=== PATIENT | male | born 1950 | race Caucasian/White ===

== ENCOUNTER 2018-07-10 15:33 | Observation (INO) | payer MEDICARE, BC ==
[2018-07-10 16:01] LABS: CHLORIDE,CL 106 mEq/L (98-106); SODIUM,NA 139 mEq/L (136-145)
[2018-07-10] MEDS ORDERED: Sodium Chloride 0.9% 10 ML Syringe FLUSH PRN (17:12)
[2018-07-10] MEDS ORDERED: Enoxaparin 40 MG/0.4 ML Syringe SUBCUT SCH (17:15)
[2018-07-11 07:43] VITALS: BP 173/94
--- NOTE | 2018-07-11 20:19 | PCM.DCSUM1 ---
Discharge Summary - Hospital Course Free Text/Narrative:: Patient presented to clinic after an episode of altered mental status. Had been working out in the shop with his brother, driving a bobcat. Brother reports he was confused, not acting normally. He was driving "like he didn't know what he was doing". Episode started at around 0930, lasted about 20 minutes but did not present until afternoon to clinic. He was back to his baseline at that time, only reported a dull headache. Had not experienced anything like this in the past. Denied chest pain, shortness of breath. Had eaten 3 donuts for breakfast. Labs in clinic within normal limits. CT scan of the head without acute changes. Admitted for neurological monitoring and telemetry. Diagnosis: Stroke: No Modified Markell Scale: No Symptoms at All Modified Sandoval Scale Score: 0 - Discharge Data Discharge Date: 07/11/18 Discharge Disposition: Home, Self-Care 01 Condition: Good - Patient Summary/Data Complications: none Hospital Course: Patient presented with concerns of TIA. Had been out in his shop and not acting or talking appropriately. Has no recollection of the events of this. Once presented to the clinic had returned back to his baseline and was feeling good with the exception of a mild headache. Labs in clinic were normal. Labs normal this am as well. Lipid profile shows total cholesterol of 185, LDL 123. CT scan of head was negative. Had echocardiogram and carotid ultrasound done today, awaiting results. Blood pressure has been ranging in the 150s/90s. Was on Lisinopril/HCT up until 1 1/2 years ago. states stopped on his own due to feeling lightheaded. Does randomly check his blood pressure and had not been concerned. No cardiac changes. Denies any symptoms today. Ambulating about without concern. No lightheadedness, chest pain or shortness of breath. Denies any weakness, numbness, tingling. No visual changes. Headache improved today. - Patient Instructions Diet: Usual Diet as Tolerated Activity: As Tolerated - Discharge Plan *PRESCRIPTION DRUG MONITORING PROGRAM REVIEWED*: No *COPY OF PRESCRIPTION DRUG MONITORING REPORT IN PATIENT EVIE: No Prescriptions/Med Rec: Clopidogrel Bisulfate [Plavix] 75 mg PO DAILY #30 tablet Lisinopril 10 mg PO DAILY #30 tablet Home Medications: Home Meds Aspirin [Halfprin] 81 mg PO DAILY 06/25/15 [History] Dextran 70/Hypromellose [Artificial Tears] 1 drop EYEBOTH DAILY 06/25/15 [ History] Ibuprofen 200 mg PO DAILY PRN 06/25/15 [History] Cyanocobalamin (Vitamin B-12) [Vitamin B-12] 250 mcg PO DAILY 07/10/18 [History] Turmeric Root Extract [Turmeric Curcumin] 500 mg PO DAILY 07/10/18 [History] Clopidogrel Bisulfate [Plavix] 75 mg PO DAILY #30 tablet 07/11/18 [Rx] Lisinopril 10 mg PO DAILY #30 tablet 07/11/18 [Rx] Referrals: Bridger Durham MD [ED Physician] - (Follow up with Dr. Durham in one week) - Discharge Summary/Plan Comment DC Time >30 min.: No Discharge Summary/Plan Comment: Discharge home Start Plavix Lisinopril 10 mg daily Follow up with Dr. Durham next week to discuss echo and carotid US results. - General Info Date of Service: 07/11/18 Admission Dx/Problem (Free Text: TIA Functional Status: Reports: Pain Controlled, Tolerating Diet, Ambulating - Review of Systems General: Denies: Fever, Weakness, Fatigue HEENT: Reports: No Symptoms Pulmonary: Denies: Shortness of Breath, Cough Cardiovascular: Denies: Chest Pain, Edema, Lightheadedness Gastrointestinal: Denies: Abdominal Pain, Nausea, Vomiting Genitourinary: Reports: No Symptoms Musculoskeletal: Reports: No Symptoms Skin: Reports: No Symptoms Neurological: Reports: No Symptoms - Patient Data Vitals - Most Recent: Last Vital Signs Temp 96.6 F 07/11/18 07:42 Pulse 72 07/11/18 04:00 Resp 18 07/11/18 07:42 BP 173/94 H 07/11/18 07:42 Pulse Ox 100 07/11/18 07:42 Weight - Most Recent: 189 lb 14.4 oz Lab Results - Last 24 hrs: Laboratory Results - last 24 hr 07/11/18 Range/Units 07:07 Triglycerides 100 (30-150) mg/dL Cholesterol 185 (0-199) mg/dL LDL Cholesterol, Calc 123 H (0-99) mg/dL HDL Cholesterol 42 L (60-90) mg/dL Med Orders - Current: Current Medications Discontinued Medications Enoxaparin Sodium (Lovenox) 40 mg SUBCUT Q24H PREET Last Admin: 07/10/18 17:37 Dose: Not Given Sodium Chloride (Saline Flush) 10 ml FLUSH ASDIRECTED PRN PRN Reason: Keep Vein Open - Exam General: Reports: Alert, Oriented HEENT: Reports: Mucous Membr. Moist/[place] Neck: Reports: Supple Lungs: Reports: Clear to Auscultation, Normal Respiratory Effort Cardiovascular: Reports: Regular Rate, Regular Rhythm GI/Abdominal Exam: Normal Bowel Sounds, Soft, Non-Tender Extremities: Normal Inspection, No Pedal Edema Skin: Reports: Warm, Dry Neurological: Reports: No New Focal Deficit
== END 2018-07-11 13:10 | disposition home or self-care (01) ==
LOC: CC.CT 15:33 → CC.MS 16:23
PROVIDERS: ADMIT Nurse Practitioner Family; ATTEND Family Medicine
DX: G45.9 Transient cerebral ischemic attack, unspecified (principal); I10 Essential (primary) hypertension; Z79.82 Long term (current) use of aspirin
CPT/HCPCS: 36415; 70450; 80053; 80061; 81001; 82728; 83540; 83550; 85025; 85610; 86140; 93005; 93306; 93880; G0378; 93010; 99217; 99220

== ENCOUNTER 2019-07-07 12:55 | Emergency (ER) | payer MEDICARE, BC ==
[2019-07-07] MEDS ORDERED: Ondansetron 4 MG/2 ML SDV IVPUSH STA (13:22)
[2019-07-07] MEDS ORDERED: Sodium Chloride 0.9% 1,000 ML IV ONE (13:22)
--- NOTE | 2019-07-07 13:46 | EDM.PDOC ---
ED HPI GENERAL MEDICAL PROBLEM - General Chief Complaint: Genitourinary Problem Stated Complaint: left flank pain Time Seen by Provider: 07/07/19 13:12 Source of Information: Reports: Patient History Limitations: Reports: No Limitations - History of Present Illness INITIAL COMMENTS - FREE TEXT/NARRATIVE: This patient is a 69 year old male that presents to the ER. Patient reports for about 1 week having left flank pain that radiates around the right lower abdomen. Patient reports that he has had this pain before and it feels like kidney stones. Patient reports that the pain has come and gone over the past 1 week. He reports having an appointment with his PCP tomorrow. However, patient report that last night the pain has been more constant. Patient reports he has had nausea and vomited 3 times since last night. Patient reports that he did have blood in his urine. Patient reports increase urinary frequency. Onset Date: 06/30/19 Duration: Constant, Getting Worse Location: Reports: Abdomen, Back Quality: Reports: Sharp Severity: Moderate Improves with: Reports: None Worsens with: Reports: None Associated Symptoms: Reports: Nausea/Vomiting. Denies: Confusion, Chest Pain, Cough, cough w sputum, Diaphoresis, Fever/Chills, Headaches, Loss of Appetite, Malaise, Rash, Seizure, Shortness of Breath, Syncope, Weakness Left Flank Pain Score (Numeric/FACES): 7 - Related Data Allergies Allergy/AdvReac Type Severity Reaction Status Date / Time No Known Allergies Allergy Verified 07/10/18 17:13 Home Meds: Home Meds Aspirin [Halfprin] 81 mg PO BEDTIME 06/25/15 [History] Dextran 70/Hypromellose [Artificial Tears] 1 drop EYEBOTH DAILY 06/25/15 [ History] Ibuprofen 200 mg PO DAILY PRN 06/25/15 [History] Turmeric Root Extract [Turmeric Curcumin] 500 mg PO DAILY 07/10/18 [History] Lisinopril 10 mg PO DAILY #30 tablet 07/11/18 [Rx] Docusate Sodium 100 mg PO BEDTIME 07/07/19 [History] Past Medical History HEENT History: Reports: Impaired Vision, Other (See Below) Other HEENT History: DRY EYE Cardiovascular History: Reports: Hypertension Gastrointestinal History: Reports: Chronic Constipation, Hiatal Hernia Genitourinary History: Reports: Renal Calculus Neurological History: Reports: TIA Oncologic (Cancer) History: Reports: Basal Cell Carcinoma - Past Surgical History HEENT Surgical History: Reports: Tonsillectomy GI Surgical History: Reports: Colonoscopy, Other (See Below) Other GI Surgeries/Procedures: BARIUM SWALLOW Male Surgical History: Reports: Kidney Stone Extraction, Lithotripsy (ESWL), Ureteral Stent Oncologic Surgical History: Reports: Other (See Below) Other Oncologic Surgeries/Procedures: biopsy of nose Dermatological Surgical History: Reports: Other (See Below) Social & Family History - Tobacco Use Smoking Status *Q: Never Smoker - Caffeine Use Caffeine Use: Reports: Coffee - Recreational Drug Use Recreational Drug Use: No ED ROS GENERAL - Review of Systems Review Of Systems: See Below Constitutional: Reports: No Symptoms HEENT: Reports: No Symptoms Respiratory: Reports: No Symptoms Cardiovascular: Reports: No Symptoms Endocrine: Reports: No Symptoms GI/Abdominal: Reports: Abdominal Pain, Nausea, Vomiting. Denies: Diarrhea : Reports: Flank Pain (left), Frequency, Hematuria. Denies: Urinary Retention Musculoskeletal: Reports: No Symptoms Skin: Reports: No Symptoms Neurological: Reports: No Symptoms Psychiatric: Reports: No Symptoms Hematologic/Lymphatic: Reports: No Symptoms Immunologic: Reports: No Symptoms ED EXAM, GI/ABD - Physical Exam Exam: See Below Exam Limited By: No Limitations General Appearance: Alert, WD/WN, No Apparent Distress Head: Atraumatic, Normocephalic Neck: Normal Inspection, Supple, Non-Tender, Full Range of Motion Respiratory/Chest: No Respiratory Distress, Lungs Clear, Normal Breath Sounds, No Accessory Muscle Use Cardiovascular: Normal Peripheral Pulses, Regular Rate, Rhythm, No Edema, No Gallop, No JVD, No Murmur, No Rub GI/Abdominal Exam: Normal Bowel Sounds, Soft, No Organomegaly, No Distention, No Abnormal Bruit, No Mass, Pelvis Stable, Tender (mild LLQ). No: Distended, Guarding, Rigid, Rebound (Male) Exam: Deferred Rectal (Males) Exam: Deferred Back Exam: Normal Inspection, Full Range of Motion, CVA Tenderness (L) (mild). No: CVA Tenderness (R) Extremities: Normal Inspection, Normal Range of Motion, Non-Tender, No Pedal Edema, Normal Capillary Refill Neurological: Alert, Oriented Psychiatric: Normal Affect, Normal Mood Skin Exam: Warm, Dry, Intact, Normal Color, No Rash Course - Vital Signs Last Recorded V/S: Last Vital Signs Temp 97.5 F 07/07/19 18:32 Pulse 76 07/07/19 18:32 Resp 16 07/07/19 18:32 BP 136/64 07/07/19 18:32 Pulse Ox 96 07/07/19 18:32 - Orders/Labs/Meds Orders: Active Orders 24 hr Category Date Time Status Abdomen Pelvis wo Cont [CT] Stat Exams 07/07/19 13:20 Taken CULTURE BLOOD [BC] Stat Lab 07/07/19 16:35 Received CULTURE BLOOD [BC] Stat Lab 07/07/19 16:40 Received CULTURE URINE [RM] Stat Lab 07/07/19 13:13 Received Sodium Chloride 0.9% [Normal Saline] 500 ml Med 07/07/19 15:15 Active IV .BOLUS Blood Culture x2 Reflex Set [OM.PC] Stat Oth 07/07/19 16:29 Ordered Medication Orders Sodium Chloride (Normal Saline) 500 mls @ 999 mls/hr IV .BOLUS PREET Last Admin: 07/07/19 15:34 Dose: 999 mls/hr Labs: Laboratory Tests 07/07/19 07/07/19 07/07/19 Range/Units 13:13 13:20 13:20 WBC 13.8 H (5.0-10.0) 10^3/uL RBC 4.71 (4.50-6.00) 10^6/uL Hgb 14.6 (14.0-18.0) g/dL Hct 42.1 (40.0-54.0) % MCV 89.4 (82.0-94.0) fL MCH 31.0 (27.0-32.0) pg MCHC 34.7 (33.0-38.0) g/dL RDW Coeff of Jailene 12.4 (11.0-15.0) % Plt Count 300 (150-400) 10^3/uL Add Manual Diff Yes Neutrophils % (Manual) 89 H (35-85) % Band Neutrophils % 5 (0-5) % Lymphocytes % (Manual) 5 L (21-55) % Monocytes % (Manual) 1 L (2-12) % Sodium 139 (136-145) mEq/L Potassium 4.4 (3.5-5.0) mEq/L Chloride 104 (98-106) mEq/L Carbon Dioxide 27 (21-32) mmol/L BUN 17 (7-18) mg/dL Creatinine 1.4 H (0.7-1.3) mg/dL Est Cr Clr Drug Dosing 51.54 mL/min Estimated GFR (MDRD) 50 L (>=60) mL/min Glucose 124 H D (75-99) mg/dL Lactic Acid (0.4-2.0) mmol/L Calcium 10.3 H (8.4-10.1) mg/dL Total Bilirubin 0.4 (0.0-1.0) mg/dL AST 14 L (15-37) U/L ALT 10 L (12-78) U/L Alkaline Phosphatase 84 (46-116) U/L C-Reactive Protein (0.2-0.8) mg/dL Total Protein 7.3 (6.4-8.2) g/dL Albumin 3.6 (3.4-5.0) g/dL Urine Color Yellow (YELLOW) Urine Appearance Slightly cloudy (CLEAR) Urine pH 5.5 (4.5-8.0) Ur Specific [place] 1.025 H (1.003-1.020) Urine Protein 30 H (NEGATIVE) mg/dL Urine Glucose (UA) Negative (NEGATIVE) mg/dL Urine Ketones Negative (NEGATIVE) mg/dL Urine Occult Blood Moderate H (NEGATIVE) Urine Nitrite Negative (NEGATIVE) Urine Bilirubin Negative (NEGATIVE) Urine Urobilinogen 0.2 (0.2-1.0) EU/dL Ur Leukocyte Esterase Moderate H (NEGATIVE) Urine RBC 20-30 H (0-5) /HPF Urine WBC 20-30 H (0-5) /HPF Urine WBC Clumps Few H (NOT SEEN) /HPF Urine Bacteria Many H (NOT SEEN) /HPF Urine Mucus Few H (NOT SEEN) /HPF 07/07/19 07/07/19 Range/Units 16:35 16:40 WBC (5.0-10.0) 10^3/uL RBC (4.50-6.00) 10^6/uL Hgb (14.0-18.0) g/dL Hct (40.0-54.0) % MCV (82.0-94.0) fL MCH (27.0-32.0) pg MCHC (33.0-38.0) g/dL RDW Coeff of Jailene (11.0-15.0) % Plt Count (150-400) 10^3/uL Add Manual Diff Neutrophils % (Manual) (35-85) % Band Neutrophils % (0-5) % Lymphocytes % (Manual) (21-55) % Monocytes % (Manual) (2-12) % Sodium (136-145) mEq/L Potassium (3.5-5.0) mEq/L Chloride (98-106) mEq/L Carbon Dioxide (21-32) mmol/L BUN (7-18) mg/dL Creatinine (0.7-1.3) mg/dL Est Cr Clr Drug Dosing mL/min Estimated GFR (MDRD) (>=60) mL/min Glucose (75-99) mg/dL Lactic Acid 1.2 (0.4-2.0) mmol/L Calcium (8.4-10.1) mg/dL Total Bilirubin (0.0-1.0) mg/dL AST (15-37) U/L ALT (12-78) U/L Alkaline Phosphatase (46-116) U/L C-Reactive Protein 1.3 H (0.2-0.8) mg/dL Total Protein (6.4-8.2) g/dL Albumin (3.4-5.0) g/dL Urine Color (YELLOW) Urine Appearance (CLEAR) Urine pH (4.5-8.0) Ur Specific [place] (1.003-1.020) Urine Protein (NEGATIVE) mg/dL Urine Glucose (UA) (NEGATIVE) mg/dL Urine Ketones (NEGATIVE) mg/dL Urine Occult Blood (NEGATIVE) Urine Nitrite (NEGATIVE) Urine Bilirubin (NEGATIVE) Urine Urobilinogen (0.2-1.0) EU/dL Ur Leukocyte Esterase (NEGATIVE) Urine RBC (0-5) /HPF Urine WBC (0-5) /HPF Urine WBC Clumps (NOT SEEN) /HPF Urine Bacteria (NOT SEEN) /HPF Urine Mucus (NOT SEEN) /HPF Meds: Medications Generic Name Dose Route Start Last Admin Trade Name Freq PRN Reason Stop Dose Admin Sodium Chloride 500 mls @ 999 mls/hr 07/07/19 15:15 07/07/19 15:34 Normal Saline IV 999 mls/hr .BOLUS PREET Administration Discontinued Medications Generic Name Dose Route Start Last Admin Trade Name Freq PRN Reason Stop Dose Admin Cefepime HCl 2 gm 07/07/19 16:39 07/07/19 18:24 Maxipime IVPUSH 07/07/19 16:40 2 gm ONETIME ONE Administration Sodium Chloride 1,000 mls @ 1,000 mls/hr 07/07/19 13:22 07/07/19 13:40 Normal Saline IV 07/07/19 14:21 1,000 mls/hr .BOLUS ONE Administration Morphine Sulfate 4 mg 07/07/19 13:22 07/07/19 13:44 Morphine IVPUSH 07/07/19 13:23 4 mg ONETIME ONE Administration Morphine Sulfate 2 mg 07/07/19 15:00 07/07/19 15:07 Morphine IVPUSH 07/07/19 15:01 2 mg ONETIME ONE Administration Ondansetron HCl 4 mg 07/07/19 13:22 07/07/19 13:41 Zofran IVPUSH 07/07/19 13:23 4 mg NOW STA Administration - Radiology Interpretation Free Text/Narrative:: CT ABD PELVIS WITHOUT: 8mm obstrutcting left proximal ureteral calculus whjich results in upstream hydronephrosis and hydroureter. 3mm stone proximal right ureteral calculus without hydronephrosis. diverticulitis junction of sigmoid colon. CT Results Date: 07/07/19 CT Results Time: 14:30 - Re-Assessments/Exams Free Text/Narrative Re-Assessment/Exam: 07/07/19 16:30 I called and spoke to DR. Lopez urology at [facility]. He said if the patient is still having pain that is caused by the stone by tomorrow, could stent the patient tomorrow. Said to transfer patient to hospitalist and he can see consult. 07/07/19 16:[address] Cannon at [facility] hospitalist. He has accepted the patient, Requested Cefepime to be started. Will transfer. 07/07/19 16:58 Risk vs benefits explained to the patient for transfer. He has accepted risks and will be transferred. Risk of transfer are , mvc, pain, worsening of condition. The risk of staying in [place] are no urologist, no urological surgery if needed. The benefits of transfer are higher level of care, urologist , urological surgery if needed. The benefits of staying in [place] are close to home. 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 - Discharge Information *PRESCRIPTION DRUG MONITORING PROGRAM REVIEWED*: Not Applicable *COPY OF PRESCRIPTION DRUG MONITORING REPORT IN PATIENT EVIE: Not Applicable Referrals: Bridger Durham MD [Primary Care Provider] - Forms: ED Department Discharge - My Orders Last 24 Hours: My Active Orders 07/07/19 13:13 CULTURE URINE [RM] Stat 07/07/19 13:20 Abdomen Pelvis wo Cont [CT] Stat 07/07/19 15:15 Sodium Chloride 0.9% [Normal Saline] 500 ml IV .BOLUS 07/07/19 16:29 Blood Culture x2 Reflex Set [OM.PC] Stat 07/07/19 16:35 CULTURE BLOOD [BC] Stat 07/07/19 16:40 CULTURE BLOOD [BC] Stat - Assessment/Plan Last 24 Hours: My Active Orders 07/07/19 13:13 CULTURE URINE [RM] Stat 07/07/19 13:20 Abdomen Pelvis wo Cont [CT] Stat 07/07/19 15:15 Sodium Chloride 0.9% [Normal Saline] 500 ml IV .BOLUS 07/07/19 16:29 Blood Culture x2 Reflex Set [OM.PC] Stat 07/07/19 16:35 CULTURE BLOOD [BC] Stat 07/07/19 16:40 CULTURE BLOOD [BC] Stat Plan: PLEASE SEE RN NOTE FOR PFSH
[2019-07-07] MEDS ORDERED: Morphine 2 MG/ML Syringe IVPUSH ONE (15:00)
[2019-07-07] MEDS ORDERED: Sodium Chloride 0.9% 500 ML IV SCH (15:15)
[2019-07-07] MEDS ORDERED: Cefepime 2 GM Vial IVPUSH ONE (16:39)
[2019-07-07 18:34] VITALS: BP 136/64; PULSE 76
== END 2019-07-07 20:05 ==
LOC: CC.ED 12:55
DX: N39.0 Urinary tract infection, site not specified (principal); K57.32 Diverticulitis of large intestine without perforation or abscess without bleeding; N28.9 Disorder of kidney and ureter, unspecified; Q62.11 Congenital occlusion of ureteropelvic junction; I10 Essential (primary) hypertension; Z79.82 Long term (current) use of aspirin; Z79.899 Other long term (current) drug therapy; Z86.73 Personal history of transient ischemic attack (TIA), and cerebral infarction without residual deficits
CPT/HCPCS: 36415; 74176; 80053; 81001; 83605; 85025; 86140; 87040; 87086; 87088; 96361; 96374; 96375; 96376; 99284; 99285-25; J0692; J2270; J2405; J7030; J7040

== ENCOUNTER 2020-05-01 22:13 | Emergency (ER) | payer MEDICARE, BC ==
[2020-05-01 22:17] VITALS: BP 155/88; PULSE 98
--- NOTE | 2020-05-01 22:40 | EDM.PDOC ---
ED HPI GENERAL MEDICAL PROBLEM - General Chief Complaint: Genitourinary Problem Stated Complaint: "can't pee" Time Seen by Provider: 05/01/20 22:20 Source of Information: Reports: Patient History Limitations: Reports: No Limitations - History of Present Illness INITIAL COMMENTS - FREE TEXT/NARRATIVE: Patient to the emergency department where he had lithotripsy today and has not been able to void after having the lithotripsy. The patient complains of low abdominal distention and severe pain and pressure. The patient denies any other symptoms Onset: Today Duration: Other (The patient advised that he last voided at [address] to the appointment to have the lithotripsy) Location: Reports: Abdomen Quality: Reports: Pressure Severity: Mild Improves with: Reports: None Worsens with: Reports: None Associated Symptoms: Denies: Chest Pain, Fever/Chills, Nausea/Vomiting, Shortness of Breath, Weakness Treatments ORTHOPAEDIC PHYSICIAN ASSISTANT: Reports: Other (see below) (none) Lower Abdominal Pain Score (Numeric/FACES): 7 - Related Data Allergies Allergy/AdvReac Type Severity Reaction Status Date / Time No Known Allergies Allergy Verified 05/01/20 22:17 Home Meds: Home Meds Dextran 70/Hypromellose [Artificial Tears] 1 drop EYEBOTH DAILY 06/25/15 [History] Turmeric Root Extract [Turmeric Curcumin] 500 mg PO DAILY 07/10/18 [History] Lisinopril 10 mg PO DAILY #30 tablet 07/11/18 [Rx] Docusate Sodium 100 mg PO BEDTIME 07/07/19 [History] Clopidogrel Bisulfate [Clopidogrel] 75 mg PO DAILY 05/01/20 [History] Hydrocodone/Acetaminophen [Hydrocodone-Acetamin 5-325 mg] 1 tab PO Q4HR PRN 05/01/20 [History] atorvaSTATin [Lipitor] 10 mg PO DAILY 05/01/20 [History] cephALEXin [Cephalexin] 500 mg PO TID 05/01/20 [History] Past Medical History HEENT History: Reports: Impaired Vision, Other (See Below) Other HEENT History: DRY EYE Cardiovascular History: Reports: Hypertension Gastrointestinal History: Reports: Chronic Constipation, Hiatal Hernia Genitourinary History: Reports: Renal Calculus Neurological History: Reports: TIA Oncologic (Cancer) History: Reports: Basal Cell Carcinoma - Past Surgical History HEENT Surgical History: Reports: Tonsillectomy GI Surgical History: Reports: Colonoscopy, Other (See Below) Other GI Surgeries/Procedures: BARIUM SWALLOW Male Surgical History: Reports: Kidney Stone Extraction, Lithotripsy (ESWL), Ureteral Stent Oncologic Surgical History: Reports: Other (See Below) Other Oncologic Surgeries/Procedures: biopsy of nose Dermatological Surgical History: Reports: Other (See Below) Social & Family History - Caffeine Use Caffeine Use: Reports: Coffee ED ROS GENERAL - Review of Systems Review Of Systems: See Below Constitutional: Reports: No Symptoms. Denies: Fever, Chills, Weakness Respiratory: Reports: No Symptoms Cardiovascular: Reports: No Symptoms GI/Abdominal: Reports: No Symptoms : Reports: Dysuria, Other (Suprapubic pain and pressure as well as dysuria) Musculoskeletal: Reports: No Symptoms. Denies: Neck Pain, Back Pain Skin: Reports: No Symptoms Neurological: Reports: No Symptoms ED EXAM, RENAL/ - Physical Exam Exam: See Below Exam Limited By: No Limitations General Appearance: Alert, WD/WN, Mild Distress Head: Atraumatic, Normocephalic Neck: Normal Inspection, Supple, Non-Tender, Full Range of Motion Respiratory/Chest: No Respiratory Distress, Lungs Clear, Normal Breath Sounds, Chest Non-Tender Cardiovascular: Normal Peripheral Pulses, Regular Rate, Rhythm GI/Abdominal: Soft, Distended (Distended lower abdomen over the bladder area and tender with palpation) Back Exam: Normal Inspection, Full Range of Motion Extremities: Normal Inspection, Normal Range of Motion, Non-Tender, Normal Capillary Refill Neurological: Alert, Oriented, Normal Cognition, Normal Gait, No Motor/Sensory Deficits Psychiatric: Normal Affect, Normal Mood Skin Exam: Warm, Dry, Intact, Normal Color Course - Vital Signs Text/Narrative:: 1039 The patient was evaluated in the emergency department, the nursing started a Singh catheter with an immediate 1000 mL out. The patient vies that he feels much better at this point. The abdomen is now soft and nontender. The catheter was left in a leg bag was attached. The patient will call the urologist on Monday and advised him of the catheter placement. The patient is already on Keflex 500 mg 3 times daily from the urologist. The patient also has Flomax which he will start that was given to him by the urologist. Last Recorded V/S: Last Vital Signs Temp 38.2 C H 05/01/20 22:14 Pulse 98 05/01/20 22:14 Resp 16 05/01/20 22:14 BP 155/88 H 05/01/20 22:14 Pulse Ox 97 05/01/20 22:14 - Orders/Labs/Meds Orders: Active Orders 24 hr Category Date Time Status Urinary Catheter Assessment [RC] ASDIRECTED Care 05/01/20 22:30 Active Urinary Catheter Insertion [Insert Urinary Catheter] [ Care 05/01/20 22:20 Ordered OM.PC] Stat Departure - Departure Time of Disposition: 22:40 Disposition: Home, Self-Care 01 Condition: Good Clinical Impression: Acute urinary retention - Discharge Information *PRESCRIPTION DRUG MONITORING PROGRAM REVIEWED*: Not Applicable *COPY OF PRESCRIPTION DRUG MONITORING REPORT IN PATIENT EVIE: Not Applicable Instructions: Clean Intermittent Catheterization, Male, Indwelling Urinary Catheter Care, Adult Additional Instructions: Follow the instructions on cleaning the urinary catheter Continue all of your medication Call the urologist on Monday and advised him of the catheter placed Return to the emergency department sooner if worse or any problems Sepsis Event Note (ED) - Evaluation Sepsis Screening Result: No Definite Risk - Focused Exam Vital Signs: Vital Signs Temp Pulse Resp BP Pulse Ox 05/01/20 22:14 38.2 C H 98 16 155/88 H 97 - Problem List & Annotations (1) Acute urinary retention SNOMED Code(s): 972303050 Code(s): R33.8 - OTHER RETENTION OF URINE Status: Acute Priority: Medium - Problem List Review Problem List Initiated/Reviewed/Updated: Yes - My Orders Last 24 Hours: My Active Orders 05/01/20 22:20 Urinary Catheter Insertion [Insert Urinary Catheter] [OM.PC] Stat 05/01/20 22:30 Urinary Catheter Assessment [RC] ASDIRECTED - Assessment/Plan Last 24 Hours: My Active Orders 05/01/20 22:20 Urinary Catheter Insertion [Insert Urinary Catheter] [OM.PC] Stat 05/01/20 22:30 Urinary Catheter Assessment [RC] ASDIRECTED Plan: See above for details of the patient's ER visit The patient's past medical history, past surgical history, social history and past family medical history reviewed see the nursing notes for details
== END 2020-05-01 23:00 | disposition home or self-care (01) ==
LOC: CC.ED 22:13
DX: R33.9 Retention of urine, unspecified (principal); I10 Essential (primary) hypertension; Z86.73 Personal history of transient ischemic attack (TIA), and cerebral infarction without residual deficits; Z79.02 Long term (current) use of antithrombotics/antiplatelets; Z79.899 Other long term (current) drug therapy
CPT/HCPCS: 51702; 99283

== ENCOUNTER 2024-10-26 17:06 | Observation (INO) | payer MEDICARE, BC ==
[2024-10-26 18:14] LABS: BASOPHILS ABSOLUTE AUTO 0.04 10^3/uL (0.00-0.50); BASOPHILS PERCENT AUTO 0.4 % (0-1); EOSINOPHILS ABSOLUTE AUTO 0.14 10^3/uL (0.00-1.50); EOSINOPHILS PERCENT AUTO 1.5 % (0-6); HEMATOCRIT 41.6 % (42.0-52.0); HEMOGLOBIN 14.5 g/dL (14.0-18.0); IMMATURE GRAN ABSOLUTE AUTO 0.01 10^3/uL (0.00-0.49); IMMATURE GRAN PERCENT AUTO 0.1 % (0.0-4.9); LYMPHOCYTES ABSOLUTE AUTO 1.13 10^3/uL (0.60-5.00); LYMPHOCYTES PERCENT AUTO 12.3 % (24-44); MEAN CORPUSCULAR HEMOGLOBIN 31.1 pg (27.0-32.0); MEAN CORPUSCULAR HGB CONC 34.9 g/dL (32.0-36.0); MEAN CORPUSCULAR VOLUME 89.3 fL (83.0-97.0); MONOCYTES ABSOLUTE AUTO 0.42 10^3/uL (0.00-1.50); MONOCYTES PERCENT AUTO 4.6 % (0-10); NEUTROPHILS ABSOLUTE AUTO 7.46 x10^3/uL (1.80-8.00); NEUTROPHILS PERCENT AUTO 81.1 % (41-71); PLATELET COUNT,PLT 259 10^3/uL (150-400); RED BLOOD CELL COUNT 4.66 x10^6/uL (4.50-6.00); WHITE BLOOD CELL COUNT,WBC 9.2 10^3/uL (4.0-11.0)
[2024-10-26] MEDS ORDERED: Methocarbamol 500 MG Tab PO ONE (18:31)
[2024-10-26 18:34] LABS: ALANINE AMINOTRANSFERASE,ALT 15 U/L (12-78); ALBUMIN 3.6 g/dL (3.4-5.0); ALKALINE PHOSPHATASE 70 U/L (46-116); ASPARTATE AMNIOTRANSFERASE,AST 14 U/L (15-37); BILIRUBIN TOTAL 0.3 mg/dL (0.0-1.0); BLOOD UREA NITROGEN,BUN 32 mg/dL (7-18); CALCIUM 8.9 mg/dL (8.4-10.1); CARBON DIOXIDE,CO2 29 mmol/L (21-32); CREATINE KINASE,CK 79 U/L (35-232); CREATININE 1.9 mg/dL (0.7-1.3); EST CRCL DRUG DOSING (CG) 35.23 mL/min; GLUCOSE RANDOM 138 mg/dL (75-99); MAGNESIUM 1.9 mg/dL (1.8-2.4)
[2024-10-26] MEDS: HYDROmorphone 0.5 MG/0.5 ML Syringe IVPUSH ONE (18:38)
[2024-10-26] MEDS: Sodium Chloride 0.9% 1,000 ML IV SCH (18:38)
[2024-10-26 18:43] LABS: C-REACTIVE PROTEIN < 0.50 mg/dL (<=0.50); CHLORIDE,CL 100 mEq/L (98-106); ESTIMATED GFR 36 mL/min (>=60); POTASSIUM,K 4.2 mEq/L (3.5-5.0); SODIUM,NA 139 mEq/L (136-145)
[2024-10-26] MEDS ORDERED: Ondansetron 4 MG/2 ML SDV IV PRN (19:16)
[2024-10-26] MEDS ORDERED: Acetaminophen 325 MG Tab PO PRN (19:16)
[2024-10-26] MEDS ORDERED: Naloxone 2 MG/2 ML Syringe IVPUSH PRN (19:16)
[2024-10-26] MEDS ORDERED: Ondansetron 4 MG Tab.DIS PO PRN (19:16)
[2024-10-26] MEDS: Methocarbamol 500 MG Tab PO SCH (20:02)
[2024-10-26] MEDS: HYDROmorphone 1 MG/ML Syringe IVPUSH PRN (20:15)
[2024-10-27 07:49] VITALS: BP 120/76; PULSE 62
[2024-10-27 07:59] LABS: BASOPHILS ABSOLUTE AUTO 0.03 10^3/uL (0.00-0.50); BASOPHILS PERCENT AUTO 0.4 % (0-1); EOSINOPHILS PERCENT AUTO 2.7 % (0-6); HEMATOCRIT 40.2 % (42.0-52.0); HEMOGLOBIN 13.6 g/dL (14.0-18.0); IMMATURE GRAN ABSOLUTE AUTO 0.01 10^3/uL (0.00-0.49); IMMATURE GRAN PERCENT AUTO 0.1 % (0.0-4.9); LYMPHOCYTES PERCENT AUTO 22.9 % (24-44); MEAN CORPUSCULAR HEMOGLOBIN 30.3 pg (27.0-32.0); MEAN CORPUSCULAR HGB CONC 33.8 g/dL (32.0-36.0); MEAN CORPUSCULAR VOLUME 89.5 fL (83.0-97.0); MONOCYTES ABSOLUTE AUTO 0.44 10^3/uL (0.00-1.50); MONOCYTES PERCENT AUTO 5.9 % (0-10); NEUTROPHILS ABSOLUTE AUTO 5.04 x10^3/uL (1.80-8.00); PLATELET COUNT,PLT 247 10^3/uL (150-400); RED BLOOD CELL COUNT 4.49 x10^6/uL (4.50-6.00); WHITE BLOOD CELL COUNT,WBC 7.4 10^3/uL (4.0-11.0)
[2024-10-27 08:26] LABS: ALBUMIN 3.2 g/dL (3.4-5.0); BILIRUBIN TOTAL 0.6 mg/dL (0.0-1.0); CALCIUM 8.3 mg/dL (8.4-10.1); CREATININE 1.4 mg/dL (0.7-1.3); EST CRCL DRUG DOSING (CG) 47.81 mL/min; POTASSIUM,K 3.4 mEq/L (3.5-5.0); PROTEIN TOTAL,TP 6.3 g/dL (6.4-8.2)
[2024-10-27] MEDS: Acetaminophen/HYDROcodone 325-5 MG Tab PO PRN (08:31)
[2024-10-27] MEDS: Fish Oil/Omega-3 Fatty Acids 1 Gm Cap PO SCH (08:33)
[2024-10-27] MEDS: Clopidogrel 75 MG Tab PO SCH (08:33)
[2024-10-27] MEDS: Polyethylene Glycol 3350 Powder 17 GM Packet PO PRN (08:36)
[2024-10-27] MEDS: Docusate Sodium 100 MG Cap PO PRN (08:37)
[2024-10-27] MEDS: Lisinopril 10 MG Tab PO SCH (08:45)
[2024-10-27] MEDS: Hydrochlorothiazide 25 MG Tab PO SCH (08:46)
[2024-10-27] MEDS: amLODIPine 10 MG Tab PO SCH (09:08)
[2024-10-27] MEDS: Take Home: Acetaminophen/HYDROcodone 325-5 MG, 2 Tab Pack PO ONE (10:13)
[2024-10-27] MEDS: Methocarbamol 500 MG Tab PO ONE (10:14)
[2024-10-27] MEDS ORDERED: Enoxaparin 40 MG/0.4 ML Syringe SUBCUT SCH (12:00)
[2024-10-27] MEDS ORDERED: amLODIPine 10 MG Tab PO SCH (20:00)
== END 2024-10-27 10:38 | disposition home or self-care (01) ==
LOC: CC.ED 17:06 → CC.MS 18:50 → UNDOADMOB 18:50 → CC.MS 18:54 → UNDODISOB 10-27 10:38
PROVIDERS: ADMIT Nurse Practitioner Family; ATTEND Nurse Practitioner Family
DX: S22.42XA Multiple fractures of ribs, left side, initial encounter for closed fracture (principal); R55 Syncope and collapse; I10 Essential (primary) hypertension; Z79.899 Other long term (current) drug therapy; W11.XXXA Fall on and from ladder, initial encounter
CPT/HCPCS: 36415; 71101-LT; 80053; 82550; 83735; 84484; 85025; 86140; 96361; 96374; 96376; 99223; 99238; 99285-25; A9270-GY; G0378; J1171; J7030

== ENCOUNTER 2025-05-09 07:50 | Day surgery (SDC) | payer MEDICARE, BC ==
[2025-05-09] MEDS: Lactated Ringers 1,000 ML IV SCH (08:10)
[2025-05-09] MEDS ORDERED: Ketamine 200 MG/20 ML MDV ONE (08:33)
[2025-05-09] MEDS ORDERED: Propofol 200 MG/20 ML SDV ONE (08:33)
[2025-05-09] MEDS ORDERED: fentaNYL 50 MCG/ML SDV ONE (08:33)
[2025-05-09 09:40] VITALS: BP 112/76; PULSE 60
== END 2025-05-09 09:44 | disposition home or self-care (01) ==
LOC: CC.SDS 07:50
PROVIDERS: ATTEND Family Medicine
DX: Z12.11 Encounter for screening for malignant neoplasm of colon (principal); I10 Essential (primary) hypertension; E78.00 Pure hypercholesterolemia, unspecified; Z79.899 Other long term (current) drug therapy
CPT/HCPCS: 93005; G0121; J2704; J3010; J3490; J7120